=== PATIENT | male | born 1980 | race Caucasian/White ===

== ENCOUNTER 2021-06-14 18:46 | Emergency (ER) | payer BC ==
[~2021-06-14] VITALS: Ht 175.3 cm; Wt 127.9 kg
[2021-06-14] MEDS ORDERED: PREDNISONE 20 MG TAB PO ONE (19:00)
[2021-06-14] MEDS ORDERED: CEFTRIAXONE 1 GM VIAL IM ONE (19:00)
[2021-06-14] MEDS ORDERED: TESSALON PERLE100 MG PO (19:08)
[2021-06-14] MEDS ORDERED: PROVENTIL HFA6.7 GM INH (19:08)
[2021-06-14] MEDS ORDERED: LEVOFLOXACIN500 MG PO (19:08)
[2021-06-14] MEDS ORDERED: CEFTRIAXONE 1 GM VIAL ONE (19:23)
[2021-06-14] MEDS ORDERED: PREDNISONE 20 MG TAB ONE (19:23)
== END 2021-06-14 19:59 | disposition home or self-care (01) ==
LOC: FSED 18:59
DX: R05.9 Cough, unspecified (principal); J40 Bronchitis, not specified as acute or chronic; J06.9 Acute upper respiratory infection, unspecified; F17.210 Nicotine dependence, cigarettes, uncomplicated
CPT/HCPCS: 71046; 99283; J0696; J7512

== ENCOUNTER 2021-09-29 10:55 | Inpatient (IN) | payer BC ==
[~2021-09-29] VITALS: Ht 175.3 cm; Wt 131.5 kg
[~2021-09-29 10:55] MED LIST: LEVOFLOXACIN500 MG PO; PROVENTIL HFA6.7 GM INH; TESSALON PERLE100 MG PO
[2021-09-29 11:18] LABS: BASOPHILS % 0.1 % (0.0-1.0); EOSINOPHILS # (AUTO) 0.1 (0.0-0.4); EOSINOPHILS % 0.4 % (0.0-6.0); HEMATOCRIT 48.2 % (38.2-49.6); HEMOGLOBIN 16.2 g/dL (14.0-18.0); LYMPHOCYTES # (AUTO) 1.9 (1.0-3.2); LYMPHOCYTES % 13.4 % (18.0-39.1); MEAN CORPUSCULAR HEMOGLOBIN 32.3 pg (28-32); MEAN CORPUSCULAR HGB CONC 33.6 g/dL (31-35); MONOCYTES # (AUTO) 0.9 (0.2-0.8); NEUTROPHILS # (AUTO) 11.3 (2.1-6.9); NEUTROPHILS % 79.6 % (38.7-80.0); PLATELET COUNT 286 x10e3/uL (140-360); RED BLOOD COUNT 5.02 x10e6/uL (4.3-5.7); RED CELL DISTRIBUTION WIDTH 12.1 % (11.7-14.4)
[2021-09-29 11:39] LABS: ALANINE AMINOTRANSFERASE 18 IU/L (0-55); ALKALINE PHOSPHATASE 74 IU/L (40-150); ANION GAP 14.9 mmol/L (8-16); BLOOD UREA NITROGEN 6 mg/dL (7-26); BUN/CREATININE RATIO 6 (6-25); CALCIUM 9.3 mg/dL (8.4-10.2); CARBON DIOXIDE 24 mmol/L (22-29); CHLORIDE 100 mmol/L (98-107); CREATINE KINASE 123 IU/L (30-200); CREATININE, SERUM 0.93 mg/dL (0.72-1.25); EST GLOMERULAR FILTRATION RATE 90 ML/MIN (60-); GLUCOSE 140 mg/dL (74-118); POTASSIUM 3.9 mmol/L (3.5-5.1); SODIUM 135 mmol/L (136-145)
[2021-09-29] MEDS ORDERED: FENTANYL CITRATE/PF 100MCG/2 ML INJ ONE (13:26)
[2021-09-29] MEDS ORDERED: MIDAZOLAM HCL 2 MG/2 ML VIAL ONE (13:26)
[2021-09-29 13:28] LABS: INR 0.87; PARTIAL THROMBOPLASTIN TIME 27.8 seconds (23.8-35.5); PROTHROMBIN TIME 12.6 seconds (11.9-14.5)
[2021-09-29 14:30] VITALS: BP 154/97
[2021-09-29] MEDS ORDERED: Morphine 4mg Syringe 4 MG/ML INJ IV PRN (14:30)
[2021-09-29] MEDS ORDERED: SODIUM CHLORIDE 0.9% 1000ML 1,000 ML IV SCH (14:30)
[2021-09-29] MEDS ORDERED: ONDANSETRON HCL INJ 2MG/ML 2ML 2 MG/ML VIAL IV PRN (14:30)
[2021-09-29] MEDS ORDERED: PROPOFOL IV EMULSION 10 MG/ML 20 ML VIAL ONE (15:28)
[2021-09-29 15:42] VITALS: BP 154/97
[2021-09-29] MEDS ORDERED: IOPAMIDOL 370 MG/ML 100 ML INFUS..BTL INJ ONE (16:57)
[2021-09-29] MEDS ORDERED: METOCLOPRAMIDE HCL 10 MG/2ML VIAL IV STA (18:19)
[2021-09-29 19:47] VITALS: BP 151/104
[2021-09-29] MEDS ORDERED: PROTONIX20 MG PO (20:24)
[2021-09-30] MEDS ORDERED: METOCLOPRAMIDE HCL 10 MG/2ML VIAL IV SCH
== END 2021-09-29 21:06 | disposition home or self-care (01) | DRG 381 ==
LOC: ER 11:10 → ERHOLD 14:35 → MED/SURG 19:03
PROVIDERS: ADMIT Internal Medicine; ATTEND Internal Medicine
PROC: 0DB78ZX Excision of Stomach, Pylorus, Via Natural or Artificial Opening Endoscopic, Diagnostic (ICD-10-PCS; 2021-09-29)
PROC: 0D738ZZ Dilation of Lower Esophagus, Via Natural or Artificial Opening Endoscopic (ICD-10-PCS; principal; 2021-09-29 16:30)
PROC: 0DB68ZX Excision of Stomach, Via Natural or Artificial Opening Endoscopic, Diagnostic (ICD-10-PCS; 2021-09-29 16:30)
DX: K22.10 Ulcer of esophagus without bleeding (principal); Z68.41 Body mass index [BMI] 40.0-44.9, adult; K29.70 Gastritis, unspecified, without bleeding; K31.89 Other diseases of stomach and duodenum; E66.01 Morbid (severe) obesity due to excess calories; I10 Essential (primary) hypertension; F10.20 Alcohol dependence, uncomplicated; Z20.822 Contact with and (suspected) exposure to COVID-19; F17.210 Nicotine dependence, cigarettes, uncomplicated
CPT/HCPCS: 36415; 43239; 43450; 71045; 74177; 80053; 82550; 82553; 83690; 84484; 85025; 85610; 85730; 88305; 88312; 93005; 99284; J2250; J3010; J7030; Q9967; U0002